=== PATIENT | female | born 1985 | race American Indian/Alaskan Native ===

== ENCOUNTER 2017-07-14 23:32 | Emergency (ER) | payer SELFPAY ==
[2017-07-15 00:15] VITALS: BP 117/90
[2017-07-15] MEDS ORDERED: TESSALON PERLES PO ONE (01:34)
[2017-07-15] MEDS ORDERED: MOTRIN PO ONE (01:34)
--- NOTE | 2017-07-15 02:13 | XRay Report ---
FINAL REPORT EXAM: XR CHEST ROUTINE 2V HISTORY: cough COMPARISON: None available. FINDINGS:: Frontal and lateral views of the chest obtained. Cardiac silhouette is within normal limits. No focal consolidation or effusion. No pneumothorax. Visualized bony thorax is grossly intact. IMPRESSION:: No acute findings.
== END 2017-07-15 04:00 | disposition left against medical advice (07) ==
LOC: ED 23:32
DX: J00 Acute nasopharyngitis [common cold] (principal); Z53.21 Procedure and treatment not carried out due to patient leaving prior to being seen by health care provider
CPT/HCPCS: 71046